=== PATIENT | female | born 1940 | race Caucasian/White ===

== ENCOUNTER 2020-08-04 16:20 | Emergency (ER) | payer MEDICARE ==
[2020-08-04 17:48] LABS: HEMOGLOBIN 13.9 gm/dl (12.3-15.3); RED BLOOD COUNT 4.73 M/UL (4.00-5.10); WHITE BLOOD COUNT 8.6 K/UL (4.5-11.0)
[2020-08-04 18:10] LABS: BUN/CREATININE RATIO 27 (0-10)
[2020-08-04] MEDS ORDERED: MACROBID 100 M100 MG PO (20:35)
[2020-08-04] MEDS ORDERED: PROTONIX40 MG PO (20:35)
== END 2020-08-04 20:50 | disposition home or self-care (01) ==
LOC: ER1 16:20
PROVIDERS: Preventive Medicine Occupational Medicine
DX: K29.00 Acute gastritis without bleeding (principal); N39.0 Urinary tract infection, site not specified; R07.9 Chest pain, unspecified; R06.02 Shortness of breath; I10 Essential (primary) hypertension; E11.9 Type 2 diabetes mellitus without complications; Z88.0 Allergy status to penicillin; Z88.1 Allergy status to other antibiotic agents; Z88.2 Allergy status to sulfonamides; Z91.040 Latex allergy status; Z20.822 Contact with and (suspected) exposure to COVID-19
CPT/HCPCS: 0240U; 36415; 71045; 80053; 81001; 82550; 82553; 83036; 83690; 83874; 83880; 84484; 85025; 85652; 86140; 87086; 93005; 99285; C9113

== ENCOUNTER 2021-04-22 16:08 | Emergency (ER) | payer MEDICARE ==
[~2021-04-22 16:08] MED LIST: MACROBID 100 M100 MG PO; PROTONIX40 MG PO
== END 2021-04-22 20:25 | disposition home or self-care (01) ==
LOC: ER1 16:08
DX: S83.91XA Sprain of unspecified site of right knee, initial encounter (principal); S39.012A Strain of muscle, fascia and tendon of lower back, initial encounter; S29.012A Strain of muscle and tendon of back wall of thorax, initial encounter; M51.36 Other intervertebral disc degeneration, lumbar region; E11.9 Type 2 diabetes mellitus without complications; I10 Essential (primary) hypertension; Z90.710 Acquired absence of both cervix and uterus; W10.8XXA Fall (on) (from) other stairs and steps, initial encounter; Y92.009 Unspecified place in unspecified non-institutional (private) residence as the place of occurrence of the external cause
CPT/HCPCS: 72128; 72131; 72192; 73502; 73562; 99284

== ENCOUNTER 2021-10-11 08:06 | Emergency (ER) | payer MEDICARE ==
[2021-10-11] MEDS ORDERED: NAPROXEN500 MG PO (09:16)
== END 2021-10-11 09:30 | disposition home or self-care (01) ==
LOC: ER1 08:06
DX: M16.12 Unilateral primary osteoarthritis, left hip (principal); E11.9 Type 2 diabetes mellitus without complications; I10 Essential (primary) hypertension
CPT/HCPCS: 99283